=== PATIENT | male | born 1995 | race Asian ===

== ENCOUNTER 2017-04-12 17:12 | Emergency (ER) | payer MEDICAID ==
--- NOTE | 2017-04-12 17:38 | ED Physician Documentation ---
PD HPI Fall - Stated complaint Stated Complaint: HEADACHE DUE TO FALL - Chief complaint Chief Complaint: Neuro - History obtained from History obtained from: Patient, Family - History of Present Illness Mechanism of injury: Slipped (fell off hay truck) Fall distance: Other (off hay truck) Where injury occurred: Other (friend's house) Timing - onset: How many hours ago (6) Injury(ies) location: Head, Left Uppper Extremity (wrist) Pain level max: 8 Pain level now: 8 (pain worsening throughout the day.) Quality of pain: Pain, Aching, Dull Associated symptoms: LOC (few seconds), Nausea / vomiting (nausea, no vomiting) . No: AMS, Amnesia, Seizures, Ear drainage, Nasal drainage, Neck pain, Weakness , Paresthesias, Dyspnea, Hematemesis, Abdominal distension Symptoms improve with: Rest Worsens with: Movement, Palpation Contributing factors: No: Anticoagulated, Intoxicated Similar symptoms before: Has not had sx before Recently seen: Not recently seen Review of Systems Ten Systems: 10 systems reviewed and negative Constitutional: denies: Fever, Chills Eyes: denies: Decreased vision, Photophobia Ears: denies: Ear pain Nose: denies: Rhinorrhea / runny nose, Congestion Throat: denies: Sore throat Respiratory: denies: Cough, Wheezing GI: reports: Nausea. denies: Abdominal Pain, Diarrhea Skin: denies: Lesions Musculoskeletal: denies: Neck pain, Back pain Neurologic: denies: Focal weakness, Numbness, Confused PD PAST MEDICAL HISTORY - Past Medical History Past Medical History: Yes Respiratory: Asthma - Past Surgical History Past Surgical History: No - Present Medications Home Medications: Ambulatory Orders Medication Instructions Recorded Confirmed No Known Home Medications [No 04/12/17 04/12/17 Known Home Medications] - Allergies Allergies/Adverse Reactions: Allergies Allergy/AdvReac Type Severity Reaction Status Date / Time Penicillins Allergy Rash Verified 04/12/17 17:22 - Social History Does the pt smoke?: No Smoking Status: Never smoker Does the pt drink ETOH?: No Does the pt have substance abuse?: No - Immunizations Immunizations are current?: Yes - POLST Patient has POLST: No PD ED PE NORMAL - Vitals Vital signs reviewed: Yes - General General: Alert and oriented X 3, No acute distress - HEENT HEENT: Atraumatic, PERRL, EOMI, Ears normal, Moist mucous membranes, Pharynx benign - Neck Neck: Supple, no meningeal sign, No bony TTP - Cardiac Cardiac: RRR - Respiratory Respiratory: No respiratory distress, Clear bilaterally - Abdomen Abdomen: Soft, Non tender, Non distended - Back Back: No CVA TTP, No spinal TTP - Derm Derm: Warm and dry, No rash - Extremities Extremities: Other (TTP over the L distal radius. NVI. No snuffbox tenderness. o /w normal extremity exams. FROM of all other joints without pain. ) - Neuro Neuro: Alert and oriented X 3, microarray operations vice president 2-12 intact, No motor deficit, No sensory deficit, Normal speech GCS Score: 15 - Psych Psych: Normal mood, Normal affect Results - Vitals Vitals: Vital Signs - 24 hr 04/12/17 04/12/17 04/12/17 17:18 17:25 19:11 Temperature 36.9 C 37.2 C Heart Rate 78 Respiratory 14 16 Rate Blood Pressure 116/75 142/69 H O2 Saturation 100 100 Oxygen O2 Source Room air - Rads (name of study) head CT Radiology: Prelim report reviewed, EMP read contemporaneously, See rad report ( normal) L wrist xray Radiology: Prelim report reviewed, EMP read contemporaneously, See rad report ( Nondisplaced, intra-articular radial metaphyseal fracture. ) Procedures - Splint (location) L wrist Splint applied by: Physician, Tech Type of splint: Fiberglass, Short arm, Volar cock up Other: Patient tolerated well, No complications, Neurovascular intact PD MEDICAL DECISION MAKING - ED course Complexity details: reviewed results, re-evaluated patient, considered differential, d/w patient, d/w family ED course: Patient is a 21-year-old male who presents to the emergency department with a closed head injury, positive loss of consciousness and worsening headache, therefore head CT was performed which is found to be negative. Patient also found to have a left distal radius fracture. Placed in a volar splint. Neurovascularly intact. No snuffbox tenderness to suggest a scaphoid fracture. Patient and family counseled regarding signs and symptoms for which I believe and urgent re-evaluation would be necessary. Patient with good understanding of and agreement to plan and is comfortable going home at this time This document was made in part using voice recognition software. While efforts are made to proofread this document, sound alike and grammatical errors may occur. Departure - Departure Disposition: 01 Home, Self Care Clinical Impression: Head injury Qualifiers: Encounter type: initial encounter Qualified Code(s): S09.90XA - Unspecified injury of head, initial encounter Distal radius fracture, left Qualifiers: Encounter type: initial encounter Fracture type: closed Fracture morphology: other intra-articular Qualified Code(s): S52.572A - Other intraarticular fracture of lower end of left radius, initial encounter for closed fracture Condition: Good Instructions: ED Head Injury Closed, ED Fx Forearm Radius Ulna No Redu Requ Follow-Up: [facility] [Provider Group] - Within 1 week Comments: Return if you worsen. Keep the splint on until seen by orthopedics. Forms: Activity restrictions Discharge Date/Time: 04/12/17 19:20
--- NOTE | 2017-04-12 18:14 | XRAY Preliminary Report ---
Exam: XR Wrist 4 View LT IMPRESSION: Nondisplaced, intra-articular radial metaphyseal fracture. [facility] SITE ID: [id number]
--- NOTE | 2017-04-12 18:16 | XRAY Report ---
EXAM: LEFT WRIST RADIOGRAPHY EXAM DATE: 04/12/2017 05:51 PM. CLINICAL HISTORY: Fall, L wrist pain. COMPARISON: None. TECHNIQUE: 3 views. FINDINGS: Bones: Nondisplaced transverse radial metaphyseal fracture. Probable intra-articular involvement at t he radial styloid process. The distal ulna and carpal bones are intact. Joints: Normal. No subluxations. Soft Tissues: Normal. No soft tissue swelling. IMPRESSION: Nondisplaced, intra-articular radial metaphyseal fracture. [facility] Referring Provider Line: [phone] SITE ID: [id number]
--- NOTE | 2017-04-12 18:49 | CT Preliminary Report ---
Exam: CT Head W/O IMPRESSION: 1. No definite acute infarct, hemorrhage, mass, hydrocephalus. 2. No definite calvarial fracture seen. [facility] SITE ID: [id number]
--- NOTE | 2017-04-12 18:52 | CT Report ---
EXAM: CT HEAD EXAM DATE: 04/12/2017 05:58 PM. CLINICAL HISTORY: 21-year-old with fall and head injury resulting in loss of consciousness. For intra cranial pathology. COMPARISON: None. TECHNIQUE: Multiaxial CT images were obtained from the foramen magnum to the vertex. IV contrast: Non e. Reformats: Coronal. In accordance with CT protocol optimization, one or more of the following dose reduction techniques w ere utilized for this exam: automated exposure control, adjustment of mA and/or KV based on patient s ize, or use of iterative reconstructive technique. FINDINGS: Parenchyma: No intraparenchymal hemorrhage. No evidence of mass, midline shift, or CT findings of inf arction. Jose-white differentiation is distinct. Extraaxial Spaces: Normal for age. No subdural or epidural collections identified. Ventricles: Normal in size and position. Sinuses: Imaged paranasal sinuses, orbits, and mastoids show no significant abnormality. Bones: No evidence of fracture or calvarial defect. Other: None. IMPRESSION: 1. No definite acute infarct, hemorrhage, mass, hydrocephalus. 2. No definite calvarial fracture seen. [facility] Referring Provider Line: [phone] SITE ID: [id number]
[2017-04-12 19:12] VITALS: BP 142/69
== END 2017-04-12 19:20 | disposition home or self-care (01) ==
LOC: ED 17:12
DX: S06.9X9A Unspecified intracranial injury with loss of consciousness of unspecified duration, initial encounter (principal); S52.502A Unspecified fracture of the lower end of left radius, initial encounter for closed fracture; W17.89XA Other fall from one level to another, initial encounter; Y92.008 Other place in unspecified non-institutional (private) residence as the place of occurrence of the external cause
CPT/HCPCS: 29125; 70450; 99283; 99284

== ENCOUNTER 2017-11-03 08:57 | Emergency (ER) | payer MEDICAID ==
[2017-11-03 09:04] VITALS: BP 121/75
[2017-11-03] MEDS ORDERED: IBUPROFEN 800 MG TABLET PO STA (09:13)
--- NOTE | 2017-11-03 09:19 | ED Physician Documentation ---
PD HPI HEENT - Stated complaint Stated Complaint: SORE THROAT/STUFFY NOSE - Chief complaint Chief Complaint: Heent - History obtained from History obtained from: Patient, Family (Mother) - History of Present Illness Timing - onset: How many weeks ago (1) Timing - details: Waxing and waning Location: Throat Associated symptoms: Congestion Similar symptoms before: Has not had sx before - Additional information Additional information: The patient is a 22-year-old male who complains of sore throat that has been waxing and waning for the past week. He reports associated congestion and nonproductive cough. He denies fever, headache, or gastrointestinal symptoms. He denies history of similar symptoms in the past. Review of Systems Constitutional: denies: Fever, Myalgias Eyes: denies: Discharge Ears: denies: Ear pain Nose: reports: Congestion Throat: reports: Sore throat Cardiac: denies: Chest pain / pressure Respiratory: reports: Cough. denies: Dyspnea GI: denies: Abdominal Pain, Nausea, Vomiting Skin: denies: Rash Musculoskeletal: denies: Extremity swelling Neurologic: denies: Headache PD PAST MEDICAL HISTORY - Past Medical History Past Medical History: Yes Respiratory: Asthma Endocrine/Autoimmune: None - Past Surgical History Past Surgical History: No - Present Medications Home Medications: Ambulatory Orders Medication Instructions Recorded Confirmed Cetirizine [ZyrTEC] 10 mg PO DAILY #10 tablet 11/03/17 - Allergies Allergies/Adverse Reactions: Allergies Allergy/AdvReac Type Severity Reaction Status Date / Time Penicillins Allergy Rash Verified 04/12/17 17:22 - Social History Does the pt smoke?: No Smoking Status: Never smoker Does the pt drink ETOH?: No Does the pt have substance abuse?: No - Immunizations Immunizations are current?: Yes - POLST Patient has POLST: No PD ED PE NORMAL - Vitals Vital signs reviewed: Yes (Normal) - General General: Alert and oriented X 3, Well developed/nourished - HEENT HEENT: Atraumatic, EOMI, Ears normal, Other (Oropharynx is injected appearing, without swelling or exudates.) - Neck Neck: Supple, no meningeal sign, No adenopathy, No JVD - Cardiac Cardiac: RRR, No murmur - Respiratory Respiratory: No respiratory distress, Clear bilaterally - Abdomen Abdomen: Soft, Non tender - Back Back: No CVA TTP - Derm Derm: No rash - Extremities Extremities: No edema, No calf tenderness / cord - Neuro Neuro: Alert and oriented X 3, No motor deficit, Normal speech Results - Vitals Vitals: Vital Signs - 24 hr 11/03/17 09:01 Temperature 36.7 C Heart Rate 70 Respiratory 18 Rate Blood Pressure 121/75 O2 Saturation 100 Oxygen O2 Source Room air - Labs Labs: Laboratory Tests 11/03/17 09:05 Group A Strep Rapid Negative PD MEDICAL DECISION MAKING - ED course Complexity details: reviewed results, considered differential, d/w patient, d/w family ED course: The patient's sore throat is likely caused by environmental allergies, although viral pharyngitis remains a consideration. Strep screen is negative. There is no evidence of peritonsillar or retropharyngeal abscess. Treatment in the emergency department included administration of ibuprofen 800 mg orally. He is being discharged with prescription for Zyrtec. I discussed with him and his mother symptomatic treatment and outpatient follow-up, as well as potentially worrisome signs or symptoms that should prompt reevaluation in the emergency department. Departure - Departure Disposition: 01 Home, Self Care Clinical Impression: Environmental and seasonal allergies Condition: Stable Instructions: ED Allergy Seasonal Prescriptions: Cetirizine [ZyrTEC] 10 mg PO DAILY #10 tablet Comments: You can use Tylenol or ibuprofen as needed for fever or discomfort. You can use Zyrtec as prescribed if needed for allergy symptoms. Follow up with your primary physician within 1-2 weeks. Call to schedule appointment. Return to the emergency department if you develop increasing difficulty swallowing, or otherwise worsening symptoms.
== END 2017-11-03 09:36 | disposition home or self-care (01) ==
LOC: ED 08:57
DX: J30.2 Other seasonal allergic rhinitis (principal)
CPT/HCPCS: 87070; 87077; 87430; 99283; A9270